=== PATIENT | female | born 1945 | race Caucasian/White ===

== ENCOUNTER 2017-04-18 13:34 | Observation (INO) ==
[2017-04-18] MEDS ORDERED: LACTATED RINGERS 1,000 ML IV ONE ×3 (13:57→17:41)
--- NOTE | 2017-04-18 14:02 | Emergency Department Note ---
Abdominal Pain HPI - General Chief Complaint: Syncope Stated Complaint: syncope, Diarrhea, vomiting Source: patient, family Mode of arrival: wheelchair - History of Present Illness HPI Narrative: 71-year-old female brought in by private vehicle with a history of syncopal episode at home. She tells me she had several bouts of diarrhea this morning, took a few Imodium but the diarrhea continued associated with crampy abdominal pain mainly in the upper epigastric area. She did vomit a few times, did not take her medication this morning and she has significant heart issues. History of coronary bypass surgery 3 years ago, but denies any chest pain, mainly she has been nauseated and having diarrhea. She had similar symptoms one week ago which resolved spontaneously. No fevers reported, she denies chest pain abdominal pain as above, did fall forwards striking her forehead as well as her right knee. She is status post right knee replacement. - Related Data Home Medications Medication Instructions Recorded Confirmed Aspirin [Herbie Chewable Aspirin] 81 mg PO DAILY 02/11/15 04/18/17 Estradiol [Estrace] 2 mg PO 3XW 02/11/15 04/18/17 FLUoxetine 20 mg PO DAILY 02/11/15 04/18/17 Folic Acid 1 mg PO DAILY 02/11/15 04/18/17 Furosemide [Lasix] 60 mg PO DAILY 02/11/15 04/18/17 Isosorbide Mononitrate [Imdur] 30 mg PO DAILY 02/11/15 04/18/17 Levothyroxine Sodium [Synthroid] 0 mcg PO DAILY 02/11/15 04/18/17 Losartan Potassium [Cozaar] 100 mg PO DAILY 02/11/15 04/18/17 Nitroglycerin [Nitrostat] 0.4 mg SL Q5M PRN 02/11/15 04/18/17 Pantoprazole [Protonix] 40 mg PO ONCE 02/11/15 04/18/17 Potassium Chloride [Klor-Con M20] 60 meq PO DAILY 02/11/15 04/18/17 Ranolazine [Ranexa] 2,000 mg PO DAILY 02/11/15 04/18/17 Simvastatin [Zocor] 10 mg PO DAILY 02/11/15 04/18/17 amLODIPine [Norvasc] 10 mg PO DAILY 02/11/15 04/18/17 Ferrous Gluconate [Fergon] 324 mg PO DAILY 11/28/16 04/18/17 Vit A/Vit C/Vit E/Zinc/Copper 2 each PO DAILY 04/18/17 04/18/17 [Preservision Areds Softgel] Allergies Allergy/AdvReac Type Severity Reaction Status Date / Time No Known Drug Allergies Allergy Verified 04/18/17 13:39 Review of Systems Constitutional: Reports: weakness. Denies: fever ENT ED: Denies: ear pain, hearing loss Cardiovascular: Denies: chest pain Respiratory: Denies: cough Gastrointestinal: Reports: abdominal pain Neurological: Reports: headache, weakness Abdominal Pain PMH - Past Medical History Medical history: Reports: cancer (colon 6 years ago), coronary artery disease Surgical history ED: Reports: appendectomy, cholecystectomy, coronary bypass ( CABG), knee replacement Family history: Reports: non-contributory - Social History Smoking status: Never smoker Alcohol use: Reports: None Drug use: Reports: none Physical Exam - General Limitations: no limitations General appearance: alert, in no apparent distress - Head Head exam: atraumatic, normocephalic, other (diffuse area of bruising to the right forehead measuring about 4 x 6 cm.) - Eye Eye exam: Present: normal appearance, PERRL. Absent: conjunctival injection - ENT ENT exam: normal exam, normal oropharynx, mucous membranes moist, TM's normal bilaterally - Neck Neck exam: Present: normal inspection, full ROM, trachea midline. Absent: tenderness, meningismus, lymphadenopathy - Chest Chest inspection: Present: normal inspection - Respiratory Respiratory exam: Present: normal lung sounds bilaterally - Cardiovascular Cardiovascular exam: Present: regular rate, systolic murmur - Abdominal Exam Abdominal exam: Present: soft, tenderness, hypoactive bowel sounds. Absent: distention - Extremities Exam Extremities exam: Present: normal inspection, full ROM, other (slight bit of pain and discomfort t to the right knee.). Absent: joint swelling - Back Exam Back exam: Present: normal inspection. Absent: CVA tenderness (R), CVA tenderness (L), vertebral tenderness - Neurological Exam Neurological exam: Present: alert, oriented X3, CN II-XII intact. Absent: motor sensory deficit - Psychiatric Psychiatric exam: Present: normal affect - Skin Skin exam: Present: warm, dry, intact Course Vital Signs Temperature 97.7 F 04/18/17 13:35 Pulse Rate 72 04/18/17 13:35 Respiratory Rate 16 04/18/17 13:35 Blood Pressure 151/74 04/18/17 13:35 Pulse Oximetry (%) 98 04/18/17 13:35 Temperature 97.7 F 04/18/17 13:35 Pulse Rate 71 04/18/17 16:31 Respiratory Rate 22 04/18/17 16:31 Blood Pressure 128/62 04/18/17 16:31 Pulse Oximetry (%) 95 04/18/17 16:31 Abdominal Pain - [facility] Narrative Medical decision making narrative: Her urine output was minimal even after 3 L of IV fluids up. We had to do a straight catheter and even at that her urine specific gravity was 1.025. She continued having diarrhea in the department despite 3 Imodium tablets of. She is taking fluids by mouth, did give us a stool sample but this is still pending. White blood cell count was elevated at 18,000. Final impression diarrhea, undetermined etiology with elevated white blood cell count and syncopal episode at home secondary to hypovolemia and dehydration. Plan is observation, discussed with Dr. Lenz - Lab Data Result diagrams: 04/18/17 14:14 04/18/17 14:14 Lab Results 04/18/17 04/18/17 04/18/17 Range/Units 14:14 14:14 14:14 WBC 18.8 H (4.5-11.0) K/mcL RBC 4.28 (4.00-5.20) M/mcL Hgb 13.3 (12.0-15.0) g/dL Hct 40.6 (36.0-48.0) % MCV 94.9 (80.0-100.0) fL MCH 31.2 (26.0-34.0) pg MCHC 32.8 (31.0-36.0) g/dL RDW 13.4 (11.5-14.5) % Plt Count 298 (140-440) K/mcL MPV 10.1 (7.4-10.4) fL Total Counted 100 Seg Neutrophils % 81 H (38-78) % Band Neutrophils % Not Reportable Lymphocytes % 9 L (15-49) % Monocytes % (Manual) 9 (1-12) % Basophils % (Manual) 1 (0-2) % Platelet Estimate Normal (NORMAL) RBC Morphology Normal (NORMAL) Sodium 143 (133-145) mmol/L Potassium 3.8 (3.3-5.1) mmol/L Chloride 106 (96-108) mmol/L Carbon Dioxide 23 (22-30) mmol/L Anion Gap 14.0 (8-16) BUN 18 (8-23) mg/dl Creatinine 0.9 (0.6-1.1) mg/dl GFR Calculation 65 Glucose 177 H (70-105) mg/dL Calcium 8.7 (8.6-10.4) mg/dl Total Bilirubin 0.5 (0.0-1.0) mg/dL AST 11 (0-37) U/l ALT 13 (0-40) U/l Alkaline Phosphatase 91 (39-117) U/L Total Creatine Kinase 39 (24-170) IU/L CK-MB (CK-2) 1.3 (0-2.9) ng/ml C-Reactive Protein 0.8 (0.0-0.8) mg/dl Total Protein 7.3 (5.9-8.4) gm/dL Albumin 4.3 (3.2-5.2) gm/dL Globulin 3.0 (2.2-3.7) gm/dL Albumin/Globulin Ratio 1.4 (1.0-2.3) Urine Color Urine Appearance Urine pH (5.0-9.0) Ur Specific Pitcher (1.000-1.035) Urine Protein (NEG) mg/dL Urine Glucose (UA) (NEG) mg/dL Urine Ketones (NEG) mg/dL Urine Occult Blood (<0.03) mg/dL Urine Nitrate (NEG) Urine Bilirubin (NEG) mg/dL Urine Urobilinogen (NEG) mg/dL Ur Leukocyte Esterase (NEG) /uL Urine RBC (0-1) /hpf Urine WBC (0-4) /hpf Ur Squamous Epith Cells (0-4) /hpf Urine Bacteria (0) /hpf Hyaline Casts (0-2) /lpf Urine Mucus (0) /hpf Ur Culture Indicated? 04/18/17 Range/Units 16:15 WBC (4.5-11.0) K/mcL RBC (4.00-5.20) M/mcL Hgb (12.0-15.0) g/dL Hct (36.0-48.0) % MCV (80.0-100.0) fL MCH (26.0-34.0) pg MCHC (31.0-36.0) g/dL RDW (11.5-14.5) % Plt Count (140-440) K/mcL MPV (7.4-10.4) fL Total Counted Seg Neutrophils % (38-78) % Band Neutrophils % Lymphocytes % (15-49) % Monocytes % (Manual) (1-12) % Basophils % (Manual) (0-2) % Platelet Estimate (NORMAL) RBC Morphology (NORMAL) Sodium (133-145) mmol/L Potassium (3.3-5.1) mmol/L Chloride (96-108) mmol/L Carbon Dioxide (22-30) mmol/L Anion Gap (8-16) BUN (8-23) mg/dl Creatinine (0.6-1.1) mg/dl GFR Calculation Glucose (70-105) mg/dL Calcium (8.6-10.4) mg/dl Total Bilirubin (0.0-1.0) mg/dL AST (0-37) U/l ALT (0-40) U/l Alkaline Phosphatase (39-117) U/L Total Creatine Kinase (24-170) IU/L CK-MB (CK-2) (0-2.9) ng/ml C-Reactive Protein (0.0-0.8) mg/dl Total Protein (5.9-8.4) gm/dL Albumin (3.2-5.2) gm/dL Globulin (2.2-3.7) gm/dL Albumin/Globulin Ratio (1.0-2.3) Urine Color Yellow Urine Appearance Hazy Urine pH 5.0 (5.0-9.0) Ur Specific Pitcher 1.025 (1.000-1.035) Urine Protein 30 A (NEG) mg/dL Urine Glucose (UA) Negative (NEG) mg/dL Urine Ketones Neg (NEG) mg/dL Urine Occult Blood Neg (<0.03) mg/dL Urine Nitrate Neg (NEG) Urine Bilirubin Neg (NEG) mg/dL Urine Urobilinogen Neg (NEG) mg/dL Ur Leukocyte Esterase Neg (NEG) /uL Urine RBC 0 (0-1) /hpf Urine WBC 1 (0-4) /hpf Ur Squamous Epith Cells 2 (0-4) /hpf Urine Bacteria 0 (0) /hpf Hyaline Casts 3 H (0-2) /lpf Urine Mucus Many A (0) /hpf Ur Culture Indicated? No Disposition Pt seen by ANIMATION PRODUCER/PA only: No Clinical Impression: Vasovagal syncope Disposition: Xfer As Outpt/Obs ([facility]) Condition: Good Referrals: Lenore Agrawal MD [Primary Care Provider] -
[2017-04-18] MEDS ORDERED: ONDANSETRON 4 MG/2 ML VIAL IV ONE (14:05)
[2017-04-18] MEDS ORDERED: PANTOPRAZOLE 40 MG VIAL IV ONE (14:05)
[2017-04-18] MEDS ORDERED: ELECTROLYTE,ORAL 1,000 ML SOLUTION PO ONE (14:52)
[2017-04-18 15:00] LABS: Mean Cell Volume 94.9 fL (80.0-100.0); Mean Corpuscular HGB Conc 32.8 g/dL (31.0-36.0); Mean Corpuscular Hemoglobin 31.2 pg (26.0-34.0); Platelet Count 298 K/mcL (140-440); RBC 4.28 M/mcL (4.00-5.20); Red Cell Distribution Width 13.4 % (11.5-14.5)
--- NOTE | 2017-04-18 15:04 | Cat Scan Report ---
History: Fell with contusion to the right forehead, vomiting and dizziness Findings: The brain was imaged without contrast at 2.5 mm intervals. The bone windows show show no skull fracture. There is no intracranial hemorrhage, infarct or cerebral edema. A 2 cm arachnoid cyst is present anteriorly in the left middle cranial fossa. There is mild atrophy, predominantly involving the frontal lobes and around the sylvian fissures. Comparison with the prior brain MRI done on 07/02/10 shows arachnoid cyst is chronic. The atrophy has become more apparent. The ventricles are normal in size. The visualized sinuses are clear. Impression: No acute abnormality Stable arachnoid cyst in the left middle cranial fossa Mild cerebral atrophy Dr. Hendricks was called with results Interpreted and Authenticated by: Jimmy Urrutia 04/18/17
[2017-04-18 15:18] LABS: ALT/SGPT 13 U/l (0-40); Albumin 4.3 gm/dL (3.2-5.2); Albumin/Globulin Ratio 1.4 (1.0-2.3); Alkaline Phosphatase 91 U/L (39-117); Blood Urea Nitrogen 18 mg/dl (8-23); C-Reactive Protein 0.8 mg/dl (0.0-0.8)
[2017-04-18 15:29] LABS: Basophils % (Manual) 1 % (0-2); Lymphocytes % 9 % (15-49); Monocytes % (Manual) 9 % (1-12); Platelet Estimate NORMAL (NORMAL); RBC Morphology NORMAL (NORMAL); Segmented Neutrophils % 81 % (38-78)
[2017-04-18 16:31] LABS: Creatine Kinase 39 IU/L (24-170); Creatine Kinase MB 1.3 ng/ml (0-2.9)
[2017-04-18 16:38] LABS: Appearance,Urine HAZY; Bacteria,Urine 0 /hpf (0); Bilirubin,Urine NEG (NEG); Color,Urine YELLOW; Glucose,Urine (UA) NEGATIVE (NEG); Leukocyte Esterase,Urine NEG /uL (NEG); Mucus,Urine MANY /hpf (0); Nitrate,Urine NEG (NEG); Protein,Urine 30 mg/dL (NEG); Specific Gravity,Urine 1.025 (1.000-1.035); Urine Blood NEG mg/dL (<0.03); Urine Hyaline Cast 3 /lpf (0-2); Urine RBC 0 /hpf (0-1); Urine Squamous Epithelial Cell 2 /hpf (0-4); Urine WBC 1 /hpf (0-4); Urobilinogen,Urine NEG (NEG)
[2017-04-18] MEDS ORDERED: ESTRADIOL 2 MG TABLET PO SCH (18:39)
[2017-04-18] MEDS ORDERED: ACETAMINOPHEN 325 MG TABLET PO PRN (18:39)
[2017-04-18] MEDS ORDERED: NITROGLYCERIN 0.4 MG TAB.SUBL SL PRN (18:39)
[2017-04-18] MEDS ORDERED: HYDROcodone/APAP 5/325MG TABLET PO PRN (18:39)
[2017-04-18] MEDS ORDERED: NALOXONE HCL 0.4 MG/ML VIAL IV PRN (18:39)
[2017-04-18] MEDS ORDERED: ONDANSETRON 4 MG/2 ML VIAL IV PRN (18:39)
[2017-04-18] MEDS: 0.9 % SODIUM CHLORIDE 1,000 ML IV SCH (18:58)
[2017-04-18] MEDS: IPRATROPIUM/ALBUTEROL 3 ML AMPUL.NEB NEB SCH ×2 (19:30→23:04)
[2017-04-18] MEDS ORDERED: IOPAMIDOL 100 ML BOTTLE IV ONE (20:05)
[2017-04-18] MEDS: HEPARIN 5,000 UNIT/ML VIAL SQ SCH (20:46)
--- NOTE | 2017-04-18 22:18 | Internal Med History&Physical ---
Medical - H&P: HPI Patient information: Note initiated : 04/18/17 at 10:12 pm Service Date, if different from initiated Date: [] Patient: Madelyn Fuentes 71 y/o F admitted on 04/18/17 for syncope, Diarrhea, vomiting. Chief Complaint: [] History of present illness: Ms. Fuentes is a 71 year old Female with h/o colon ca, htn, cad, hld, presented to the ER after a episode of syncope today The patient was at her usual self till yesterday evening, after which she became sick with abdominal discomfort, some nausea and diarrhea. She notes she must have gone countless times to the bathroom, no incontinence. She admits to some stomach bloating and discomfort but no real abdominal pain or tenesmus. The patient does not e ndorse any recent use of antibiotics. The symptoms started with soft stools which progressed to watery diarrhea, no mucous or blood in the stools. This Am the patient had nausea and vomiting and threw up what she ate. She conitnued to have diarrhea and became dizzy and passed out. She likely was out for an hour she had head injury on fall, but no other sypmtoms, no chest pain, no palptiations no other prodromal symptom besides dizziness. She was then brought to the ER for further eval by her . In the ER she was noted to have elevated wbc count, but normal renal panel, CXR appears clear, She was give 3 L bolus fluids with minimal renal output. She continues to have diarrhea. Cdiff is neg. She was therefore admitted to the hospital for further management. She notes that over the last 8 yrs she has had 3 episodes similar to this, with passing out after having a bout of diarrhea. Unable to determine the cause as such, She also had one episode of syncope not associated with diarrhea, has been worked up by cardiology and has a loop monitor placed, not sure if this monitor is still working. The patient on exam had some abdomina pain on exam and CT Abdomen and pelvis was done which was reported as negative by the radiologist. All systems: reviewed and no additional remarkable complaints except as stated ( as per HPI) Medical - H&P: PMH Medical history: Medical History Dehydration (Acute) Vasovagal syncope (Acute) colon ca htn cad s/p stent s/p cabg renal artery stenosis hld Surgical history: cabg colectomy tka shoulder surgery cataract surgery Family history: reviewed and not pertinent Social history: non smoker social etoh no recreational drugs. Medical - H&P: Meds Home Medications Medication Instructions Recorded Confirmed Type Aspirin [Herbie Chewable Aspirin] 81 mg PO DAILY 02/11/15 04/18/17 History Estradiol [Estrace] 2 mg PO 3XW 02/11/15 04/18/17 History FLUoxetine 20 mg PO DAILY 02/11/15 04/18/17 History Folic Acid 1 mg PO DAILY 02/11/15 04/18/17 History Furosemide [Lasix] 60 mg PO DAILY 02/11/15 04/18/17 History Isosorbide Mononitrate [Imdur] 30 mg PO DAILY 02/11/15 04/18/17 History Levothyroxine Sodium [Synthroid] 0 mcg PO DAILY 02/11/15 04/18/17 History Losartan Potassium [Cozaar] 100 mg PO DAILY 02/11/15 04/18/17 History Nitroglycerin [Nitrostat] 0.4 mg SL Q5M PRN 02/11/15 04/18/17 History Pantoprazole [Protonix] 40 mg PO ONCE 02/11/15 04/18/17 History Potassium Chloride [Klor-Con M20] 60 meq PO DAILY 02/11/15 04/18/17 History Ranolazine [Ranexa] 2,000 mg PO DAILY 02/11/15 04/18/17 History Simvastatin [Zocor] 10 mg PO DAILY 02/11/15 04/18/17 History amLODIPine [Norvasc] 10 mg PO DAILY 02/11/15 04/18/17 History Ferrous Gluconate [Fergon] 324 mg PO DAILY 11/28/16 04/18/17 History Vit A/Vit C/Vit E/Zinc/Copper 2 each PO DAILY 04/18/17 04/18/17 History [Preservision Areds Softgel] Allergies Allergy/AdvReac Type Severity Reaction Status Date / Time No Known Drug Allergies Allergy Verified 04/18/17 13:39 Medical - H&P: Exam - Constitutional Vitals: Temp Pulse Resp BP Pulse Ox 100 F H 66 18 153/67 98 04/18/17 18:30 04/18/17 18:30 04/18/17 18:30 04/18/17 18:30 04/18/17 18:30 Exam: GENERAL: The patient is a well-developed, well-nourished in no apparent distress. Is alert and oriented x3. VITAL SIGNS: Reviewed and as noted elsewhere. HEENT: Head is normocephalic and atraumatic. Extraocular muscles are intact. Pupils are equal, round, and reactive to light. Nares appeared normal. Mouth appears any without lesions. Mucous membranes are dry NECK: Normal to inspection, Supple, No lymphadenopathy or thyromegaly. LUNGS: Air entry equal on both sides, no wheezing, crackles or rhonchi noted. No accessory muscles of respiration HEART: Regular rate and rhythm normal, S1 and S2 heard, no Gallop, S3 or Rub Noted, No Gross murmur heard. ABDOMEN: Soft, mild epigastric tendernes,s, no rebound or guarding. , and nondistended. Positive bowel sounds. No hepatosplenomegaly was noted. EXTREMITIES: No cyanosis, clubbing, rash, lesions or edema. NEUROLOGIC: Cranial nerves II through XII are grossly intact. Motor and Sensory System Grossly Intact PSYCHIATRIC: Normal affect, Normal Mood. Appropriate Behavior. SKIN: No ulceration or wounds noted, No jaundice, No rash noted. Medical - H&P: Reslt - Labs CBC & Chem 7: 04/18/17 14:14 04/18/17 14:14 Labs: Short CBC 04/18/17 Range/Units 14:14 WBC 18.8 H (4.5-11.0) K/mcL Hgb 13.3 (12.0-15.0) g/dL Hct 40.6 (36.0-48.0) % Plt Count 298 (140-440) K/mcL [facility] 04/18/17 14:14 Sodium 143 Potassium 3.8 Chloride 106 Carbon Dioxide 23 BUN 18 Creatinine 0.9 Glucose 177 H Calcium 8.7 Cardiac Enzymes 04/18/17 Range/Units 14:14 Total Creatine Kinase 39 (24-170) IU/L CK-MB (CK-2) 1.3 (0-2.9) ng/ml Liver Function 04/18/17 Range/Units 14:14 Total Bilirubin 0.5 (0.0-1.0) mg/dL AST 11 (0-37) U/l ALT 13 (0-40) U/l Alkaline Phosphatase 91 (39-117) U/L Albumin 4.3 (3.2-5.2) gm/dL Urine 04/18/17 Range/Units 16:15 Urine Color Yellow Urine Appearance Hazy Urine pH 5.0 (5.0-9.0) Ur Specific [place] 1.025 (1.000-1.035) Urine Protein 30 A (NEG) mg/dL Urine Glucose (UA) Negative (NEG) mg/dL Medical - H&P: A/P - Narrative A/P Narrative: A/P Syncope: LIkely related to dehydartion/ vasovalgal EKG shows non sp st wave changes, rest of workup neg, monitor on tele given h/o cardiac disease, CT head is negative, MRA neck and head done in the past is negative (2014) Diarrhea: Etiology: viral? food poisioning? pt history not suggestive of same. Cdiff is neg, some leuke present on stool Await cultures. if this does not resolve by self, will consider getting stool osm gap and consider GI consult for colonoscopy and bx, she has had a neg colonoscopy in 11/2016 Dehydration: due to diahrrhea, IV fluids and increase oral intake, monitor. CAD/ PVD/ htn/ ghld: resume home meds DVT hep sq DNR CArdiac diet. Medical - H&P: Qual - VTE Deep Vein Thrombosis/Pulmonary Embolism Present on Admission: No
[2017-04-19] MEDS: IPRATROPIUM/ALBUTEROL 3 ML AMPUL.NEB NEB SCH ×4 (02:30→14:17)
[2017-04-19] MEDS: 0.9 % SODIUM CHLORIDE 1,000 ML IV SCH (04:51)
[2017-04-19 06:45] LABS: Basophils # (Auto) 0 K/mcL (0.0-0.3); Basophils % (Auto) 0.3 % (0.0-2.0); Eosinophils # (Auto) 0.4 K/mcL (0.0-0.7); Eosinophils % (Auto) 2.9 % (0.0-7.0); Granulocytes % (Auto) 68.2 % (38.0-78.0); Lymphocytes # (Auto) 2.8 K/mcL (1.5-4.8); Lymphocytes % (Auto) 22.1 % (15.5-49.0); Mean Cell Volume 95.8 fL (80.0-100.0); Mean Corpuscular HGB Conc 33.1 g/dL (31.0-36.0); Mean Corpuscular Hemoglobin 31.7 pg (26.0-34.0); Monocytes # (Auto) 0.8 K/mcL (0.1-0.9); Monocytes % (Auto) 6.5 % (1.0-12.0); Platelet Count 260 K/mcL (140-440); RBC 3.51 M/mcL (4.00-5.20); Red Cell Distribution Width 13.9 % (11.5-14.5)
[2017-04-19 06:51] LABS: Amylase 28 U/L (28-100); Lipase 24 U/L (7-60)
[2017-04-19 06:57] LABS: ALT/SGPT 10 U/l (0-40); Albumin 3.3 gm/dL (3.2-5.2); Albumin/Globulin Ratio 1.2 (1.0-2.3); Alkaline Phosphatase 74 U/L (39-117); Bilirubin,Direct < 0.2 mg/dL (0.0-0.3); Blood Urea Nitrogen 9 mg/dl (8-23); Gamma Glutamyl Transpeptidase 10 U/L (5-36); Magnesium 1.7 mg/dL (1.6-2.5); Uric Acid 6.5 mg/dL (2.5-8.0)
[2017-04-19] MEDS ORDERED: PANTOPRAZOLE 40 MG TABLET PO SCH (07:30)
[2017-04-19] MEDS ORDERED: LEVOTHYROXINE 75 MCG TABLET PO SCH (07:30)
[2017-04-19] MEDS ORDERED: LEVOTHYROXINE 100 MCG TABLET PO SCH (07:30)
[2017-04-19] MEDS ORDERED: POTASSIUM CHLORIDE 40 MEQ in DEXTROSE 5% IN WATER 500 ML IV ONE (07:30)
--- NOTE | 2017-04-19 07:52 | XRay Report ---
HISTORY: Reason for Exam:leucocytosis FINDINGS: The lungs are clear and well expanded. There is no evidence of pneumonia or pleural effusion. The heart size and pulmonary vasculature are normal. Sternal wires are present. There is a cylindrical shaped electronic device implanted in the subcutaneous tissues anterior to the left side of the sternum. There has been no significant change since 03/16/17. IMPRESSION: Normal exam Interpreted and Authenticated by: Jimmy Urrutia 04/19/17
[2017-04-19] MEDS ORDERED: POTASSIUM CHLORIDE 20 MEQ TABLET PO SCH (08:00)
--- NOTE | 2017-04-19 08:00 | Cat Scan Report ---
CLINICAL INFORMATION: Reason for Exam:abdominal pain, diarrhea. And leukocytosis COMPARISON: None. TECHNIQUE: Following oral contrast and the injection of intravenous contrast the patient was scanned during the portal venous phase from the diaphragm through the symphysis pubis. Five minute delayed images were acquired of the upper abdomen. Sagittal and coronal reformats were created.. FINDINGS: The lung bases are clear. Small hiatus hernia is noted. The liver and spleen are normal in size and homogeneous. The gallbladder has been removed. The bile ducts are nondilated. The pancreas is normal without evidence of a mass or inflammation. The adrenals are normal and symmetric. There is an exophytic 1.7 cm cyst located laterally in the lower pole of left kidney. A 4 x 5 mm cortical cyst is present anteriorly in the middle third of the right kidney. The kidneys are otherwise normal. The aorta is normal in caliber. There are few small scattered plaques in the distal aorta and left common iliac artery. Proximal portion of the colon is been resected and there is [id number] anastomosis of the ileum with the ascending colon. There is no stricture or inflammation at the anastomosis. There is no evidence of bowel obstruction. There is no inflammation of the large or small intestine. No diverticular present. The uterus and ovaries and appendix have been removed. Patient has no ascites or adenopathy. There is no abscess or evidence of a mass within the abdomen or pelvis. There are postoperative changes following laminectomy and posterior fusion from L3 to S1. The L2-3 disc space is severely narrowed. IMPRESSION: No acute abnormality Dr. Mcguire was called with results Interpreted and Authenticated by: Jimmy Urrutia 04/19/17
[2017-04-19] MEDS: HEPARIN 5,000 UNIT/ML VIAL SQ SCH (08:06)
[2017-04-19] MEDS ORDERED: SIMVASTATIN 10 MG TABLET PO SCH (09:00)
[2017-04-19] MEDS ORDERED: ASPIRIN 81 MG TAB.CHEW PO SCH (09:00)
[2017-04-19] MEDS ORDERED: FLUoxetine HCL 20 MG CAPSULE PO SCH (09:00)
[2017-04-19] MEDS ORDERED: ISOSORBIDE MONONITRATE 30 MG TAB.XL.24H PO SCH (09:00)
[2017-04-19] MEDS ORDERED: LEVOTHYROXINE SODIUM 175 MCG TABLET PO SCH (09:00)
[2017-04-19] MEDS ORDERED: FOLIC ACID 1 MG TABLET PO SCH (09:00)
[2017-04-19] MEDS ORDERED: RANOLAZINE 2000 MG PO SCH (09:00)
[2017-04-19] MEDS ORDERED: amLODIPine 10 MG TABLET PO SCH (09:00)
[2017-04-19] MEDS ORDERED: FERROUS GLUCONATE 324 MG TABLET PO SCH (12:00)
--- NOTE | 2017-04-19 14:22 | Discharge Summary ---
Medical - DS: Prov Patient information: Note initiated : 04/19/17 at 2:18 pm Service Date, if different from initiated Date: [] Patient: Madelyn Fuentes 71 y/o F admitted on 04/18/17 for Syncope, Diarrhea, Vomiting. Chief Complaint: [] Date of admission: 04/18/17 18:30 Discharge date: 04/19/17 Primary care physician: Lenore Agrawal Admitting clinician: Yusuf Mcguire Consults: 04/18/17 17:22 Consult to Physician [CONS] Stat Comment: Consulting Provider: Yusuf Mcguire Reason For Exam: Physician to Consult Discharging clinician: Yusuf Mcguire Medical - DS: Meds - Discharge Medications Active and Home Medications: Home Medications Aspirin [Herbie Chewable Aspirin] 81 mg PO DAILY 02/11/15 [History Confirmed 09/30 Last Taken Unknown] Estradiol [Estrace] 2 mg PO 3XW 02/11/15 [History Confirmed 04/18/17 Last Taken Unknown] FLUoxetine 20 mg PO DAILY 02/11/15 [History Confirmed 04/18/17 Last Taken Unknown] Folic Acid 1 mg PO DAILY 02/11/15 [History Confirmed 04/18/17 Last Taken Unknown ] Furosemide [Lasix] 60 mg PO DAILY 02/11/15 [History Confirmed 04/18/17 Last Taken Unknown] Isosorbide Mononitrate [Imdur] 30 mg PO DAILY 02/11/15 [History Confirmed Last Taken Unknown] Levothyroxine Sodium [Synthroid] 0 mcg PO DAILY 02/11/15 [History Confirmed 09/30 Last Taken Unknown] Losartan Potassium [Cozaar] 100 mg PO DAILY 02/11/15 [History Confirmed Last Taken Unknown] Nitroglycerin [Nitrostat] 0.4 mg SL Q5M PRN 02/11/15 [History Confirmed Last Taken Unknown] Pantoprazole [Protonix] 40 mg PO ONCE 02/11/15 [History Confirmed 04/18/17 Last Taken Unknown] Potassium Chloride [Klor-Con M20] 60 meq PO DAILY 02/11/15 [History Confirmed Last Taken Unknown] Ranolazine [Ranexa] 2,000 mg PO DAILY 02/11/15 [History Confirmed 04/18/17 Last Taken Unknown] Simvastatin [Zocor] 10 mg PO DAILY 02/11/15 [History Confirmed 04/18/17 Last Taken Unknown] amLODIPine [Norvasc] 10 mg PO DAILY 02/11/15 [History Confirmed 04/18/17 Last Taken Unknown] Ferrous Gluconate [Fergon] 324 mg PO DAILY 11/28/16 [History Confirmed 04/18/17 Last Taken Unknown] Vit A/Vit C/Vit E/Zinc/Copper [Preservision Areds Softgel] 2 each PO DAILY 04/18 [History Confirmed 04/18/17 Last Taken Unknown] Medical - DS: Hosp Hospital course: Ms. Fuentes is a 71 year old Female with h/o colon ca, htn, cad, hld, presented to the ER after a episode of syncope yesterday. the patient was at her usual self till day before yesterday evening, after which she became sick with abdominal discomfort, some nausea and diarrhea. She notes she must have gone countless times to the bathroom, no incontinence. She admits to some stomach bloating and discomfort but no real abdominal pain or tenesmus. The patient does not endorse any recent use of antibiotics. The symptoms started with soft stools which progressed to watery diarrhea, no mucous or blood in the stools. This Am the patient had nausea and vomiting and threw up what she ate. She continued to have diarrhea and became dizzy and passed out. She likely was out for an hour she had head injury on fall, but no other symptoms, no chest pain, no palpitations no other prodromal symptom besides dizziness. She was then brought to the ER for further eval by her . In the ER she was noted to have elevated wbc count, but normal renal panel, CXR appears clear, She was give 3 L bolus fluids with minimal renal output. She continues to have diarrhea. Cdiff is neg. She was therefore admitted to the hospital for further management. She notes that over the last 8 yrs she has had 3 episodes similar to this, with passing out after having a bout of diarrhea. Unable to determine the cause as such, She also had one episode of syncope not associated with diarrhea, has been worked up by cardiology and has a loop monitor placed, not sure if this monitor is still working. The patient on exam had some abdominal pain on exam and CT Abdomen and pelvis was done which was reported as negative by the radiologist. CXR chest negative The patient symptoms improved overnight, she had 2 bowel movements this AM and none since then, she was able to tolerate po diet well without any issues. The patient tele is neg, and her loop monitor interogation did not reveal any abnormal events Its very likely that the patient has some viral diarrhea vs self limiting diarrhea episode. Should this continue it may be worth while to consider repeat colonoscopy with bx to r/o microscopic colitis. No changes in patients home medications has been done. Discharge diagnosis: Vasovagal syncope, Dehydration, Diarrhea - Time Spent with Patient Total time spent providing and/or coordinating discharge services: Less than 30 minutes Medical - DS: Exam - Constitutional Vitals: Vital Signs Temp Pulse Pulse Resp BP BP BP 04/19/17 12:00 98.3 F 20 129/66 04/19/17 08:00 99.8 F H 61 16 120/61 04/19/17 07:17 04/19/17 04:00 98.7 F 65 18 125/66 04/19/17 00:00 98.4 F 79 16 155/65 04/18/17 18:30 100 F H 66 18 153/67 04/18/17 18:01 65 14 128/62 04/18/17 17:31 66 14 140/60 04/18/17 17:01 67 17 126/63 04/18/17 16:31 71 22 128/62 04/18/17 16:01 67 26 H 131/72 04/18/17 15:46 72 16 118/66 04/18/17 15:31 19 127/65 04/18/17 15:16 68 18 120/53 04/18/17 15:01 70 18 128/55 04/18/17 14:46 69 16 112/74 04/18/17 14:38 72 20 114/67 Pulse Ox 04/19/17 12:00 96 04/19/17 08:00 96 04/19/17 07:17 93 04/19/17 04:00 93 04/19/17 00:00 96 04/18/17 18:30 98 04/18/17 18:01 98 04/18/17 17:31 98 04/18/17 17:01 95 04/18/17 16:31 95 04/18/17 16:01 100 04/18/17 15:46 98 04/18/17 15:31 04/18/17 15:16 95 04/18/17 15:01 98 04/18/17 14:46 93 04/18/17 14:38 96 Intake and Output 04/19/17 04/19/17 04/19/17 05:59 13:59 21:59 Intake Total 988 / 988 450 / 450 Balance 988 / 988 450 / 450 Intake: IV 988 / 988 Sodium Chloride 0.9% 1,000 ml @ 988 / 988 100 mls/hr IV .Q10H LUPILLO Rx#: [id number] Oral 450 / 450 Other: Meal Lunch Percent of Meal Consumed 100% Feeding Ability Assist with Tray Set Up # Voids 2 # Bowel Movements 3 Additional comments: Constitutional; Afebrile, cooperative, alert, not in distress. Eyes- No icterus, , No periorbital swelling Ears- Ext ear normal, hearing normal to conversation. Neck- Midline trachea, supple Respiratory system: Air Entry equal on both sides, No crackles or wheezing, no rhonchi. CVS- Rate rhythm regular, S1,S2 heard, no gallop, no rub. Abdomen- Soft nontender abdomen, no organomegaly, no tenderness, no guarding or rigidity, GRAPE PRUNER- AOOx3, moving all extremities, no gross focal deficit noted. Medical - DS: Data Procedures and tests throughout hospitalization: Head CT Impression: No acute abnormality Stable arachnoid cyst in the left middle cranial fossa Mild cerebral atrophy Abdominal CT IMPRESSION: No acute abnormality Xray chest IMPRESSION: Normal exam Labs on day of discharge: Labs from last 24 hours 04/19/17 04/19/17 04/19/17 03:30 03:30 03:30 WBC RBC Hgb Hct MCV MCH MCHC RDW Plt Count MPV Gran % Lymph % (Auto) [place] % (Auto) Eos % (Auto) Baso % (Auto) Gran # Lymph # (Auto) [place] # (Auto) Eos # (Auto) Baso # (Auto) Total Counted Seg Neutrophils % Band Neutrophils % Lymphocytes % Monocytes % (Manual) Basophils % (Manual) Platelet Estimate RBC Morphology Sodium 142 Potassium 3.1 L Chloride 108 Carbon Dioxide 21 L Anion Gap 13.0 BUN 9 Creatinine 0.7 GFR Calculation 88 Glucose 93 Uric Acid 6.5 Calcium 8.2 L Phosphorus 3.0 Magnesium 1.7 Total Bilirubin 0.3 Direct Bilirubin < 0.2 GGT 10 AST 10 ALT 10 Alkaline Phosphatase 74 Lactate Dehydrogenase 138 Total Creatine Kinase CK-MB (CK-2) C-Reactive Protein Total Protein 6.1 Albumin 3.3 Globulin 2.8 Albumin/Globulin Ratio 1.2 Triglycerides 152 H Amylase 28 Lipase 24 Procalcitonin 0.12 Urine Color Urine Appearance Urine pH Ur Specific [place] Urine Protein Urine Glucose (UA) Urine Ketones Urine Occult Blood Urine Nitrate Urine Bilirubin Urine Urobilinogen Ur Leukocyte Esterase Urine RBC Urine WBC Ur Squamous Epith Cells Urine Bacteria Hyaline Casts Urine Mucus Ur Culture Indicated? 04/19/17 04/18/17 04/18/17 03:30 16:15 14:14 WBC 12.6 H RBC 3.51 L Hgb 11.1 L Hct 33.6 L MCV 95.8 MCH 31.7 MCHC 33.1 RDW 13.9 Plt Count 260 MPV 10.4 Gran % 68.2 Lymph % (Auto) 22.1 [place] % (Auto) 6.5 Eos % (Auto) 2.9 Baso % (Auto) 0.3 Gran # 8.6 H Lymph # (Auto) 2.8 [place] # (Auto) 0.8 Eos # (Auto) 0.4 Baso # (Auto) 0 Total Counted Seg Neutrophils % Band Neutrophils % Lymphocytes % Monocytes % (Manual) Basophils % (Manual) Platelet Estimate RBC Morphology Sodium Potassium Chloride Carbon Dioxide Anion Gap BUN Creatinine GFR Calculation Glucose Uric Acid Calcium Phosphorus Magnesium Total Bilirubin Direct Bilirubin GGT AST ALT Alkaline Phosphatase Lactate Dehydrogenase Total Creatine Kinase 39 CK-MB (CK-2) 1.3 C-Reactive Protein Total Protein Albumin Globulin Albumin/Globulin Ratio Triglycerides Amylase Lipase Procalcitonin Urine Color Yellow Urine Appearance Hazy Urine pH 5.0 Ur Specific [place] 1.025 Urine Protein 30 A Urine Glucose (UA) Negative Urine Ketones Neg Urine Occult Blood Neg Urine Nitrate Neg Urine Bilirubin Neg Urine Urobilinogen Neg Ur Leukocyte Esterase Neg Urine RBC 0 Urine WBC 1 Ur Squamous Epith Cells 2 Urine Bacteria 0 Hyaline Casts 3 H Urine Mucus Many A Ur Culture Indicated? No 04/18/17 04/18/17 14:14 14:14 WBC 18.8 H RBC 4.28 Hgb 13.3 Hct 40.6 MCV 94.9 MCH 31.2 MCHC 32.8 RDW 13.4 Plt Count 298 MPV 10.1 Gran % Lymph % (Auto) [place] % (Auto) Eos % (Auto) Baso % (Auto) Gran # Lymph # (Auto) [place] # (Auto) Eos # (Auto) Baso # (Auto) Total Counted 100 Seg Neutrophils % 81 H Band Neutrophils % Not Reportable Lymphocytes % 9 L Monocytes % (Manual) 9 Basophils % (Manual) 1 Platelet Estimate Normal RBC Morphology Normal Sodium 143 Potassium 3.8 Chloride 106 Carbon Dioxide 23 Anion Gap 14.0 BUN 18 Creatinine 0.9 GFR Calculation 65 Glucose 177 H Uric Acid Calcium 8.7 Phosphorus Magnesium Total Bilirubin 0.5 Direct Bilirubin GGT AST 11 ALT 13 Alkaline Phosphatase 91 Lactate Dehydrogenase Total Creatine Kinase CK-MB (CK-2) C-Reactive Protein 0.8 Total Protein 7.3 Albumin 4.3 Globulin 3.0 Albumin/Globulin Ratio 1.4 Triglycerides Amylase Lipase Procalcitonin Urine Color Urine Appearance Urine pH Ur Specific [place] Urine Protein Urine Glucose (UA) Urine Ketones Urine Occult Blood Urine Nitrate Urine Bilirubin Urine Urobilinogen Ur Leukocyte Esterase Urine RBC Urine WBC Ur Squamous Epith Cells Urine Bacteria Hyaline Casts Urine Mucus Ur Culture Indicated? Preliminary micro results at discharge 04/18/17 14:28 Stool Culture - Preliminary Stool Medical - DS: A/P - Patient/Caregiver Discharge Instructions Activity: increase activity as tolerated Diet: Cardiac Additional Instructions: Keep self well hydrated, use electrolyte solution if diarrrhea recurrs. Follow up with PCP in 1-2 weeks Follow up with GI if diarrhea recurres in the future. Go to the ER if syncope, chest pain or any other concerning symptom No changes are done in your home medication list. - Follow up Plan Follow up with: Lenore Agrawal MD [Primary Care Provider] - Disposition: Home, Self-Care Prognosis: Good Rehab Potential: Good I certify that the patient requires SNF services: No Overall status at discharge: patient is progressing back to baseline Medical - DS: Qual - VTE Deep Vein Thrombosis/Pulmonary Embolism Present on Admission: No
[2017-04-20] MEDS ORDERED: PNEUMOCOCCAL 23-VAL P-SAC VAC 0.5 ML VIAL IM ONE (10:00)
[2017-04-20] MEDS ORDERED: FLU VACC QS2017-18 36MOS UP/PF 60 MCG/0.5 ML SYRINGE IM ONE (10:00)
== END 2017-04-19 17:25 | disposition home or self-care (01) ==
LOC: ED 13:34 → ICU 18:30 → INTOOBSV 18:30
PROVIDERS: ADMIT Internal Medicine; ATTEND Internal Medicine